=== PATIENT | male | born 1970 | race Caucasian/White ===

== ENCOUNTER → 2021-10-15 09:20 | Outpatient (CLI) | payer OTHER, SELFPAY ==
--- NOTE | ~2021-10-15 | XR_ITS ---
XR hip BI 2V w AP pelvis DATE: 10/15/2021 11:02 INDICATION: Right hip pain TECHNIQUE: AP pelvis. AP and lateral views of each hip COMPARISON: None FINDINGS: The pubic symphysis and sacroiliac joints are intact. Hip joint spaces are symmetric and re latively preserved. No pelvic fracture or bone destruction. No fracture, dislocation, avascular necrosis or bone destruct ion of either hip is detected. IMPRESSION: Negative Reviewed, dictated and finalized at location A. IMPRESSION: Negative
--- NOTE | ~2021-10-15 | XR_ITS ---
XR lumbar spine 2-3V DATE: 10/15/2021 11:01 INDICATION: Right hip pain TECHNIQUE: AP, lateral, coned lateral lumbosacral views COMPARISON: None FINDINGS: There is minimal levoscoliosis of the lumbar spine. No fracture or bone destruction. The lumbar pedicles are intact. There is degenerative changes apophyseal joints at L4-5 and L5-S1 in particular, with minimal grade 1 anterolisthesis at L4-5. There is prominent bridging osteophytes at L1-2 and L2-3 with moderate loss of interspace height at t hese levels, consistent with degenerative disc disease. Mild degenerative disc disease at L3-4 and L4-5. L5-S1 interspace is well preserved. Included portions of the sacroiliac joints are unremarkable. Evidence of bilateral prominent nephrolithiasis. IMPRESSION: Multilevel degenerative disease, most pronounced at L1-2 and L2-3 Degenerative changes apophyseal joints with minimal grade 1 anterolisthesis at L4-5 Bilateral prominent nephrolithiasis Reviewed, dictated and finalized at location A.
--- NOTE | ~2021-10-15 | MMUS_ITS ---
EXAMINATION: MM diagnostic mammo unilat LT, US breast LT limited HISTORY: Palpable left breast lump TECHNIQUE: Additional 3-D tomosynthesis images of left were performed and synthetic 2-D images were g enerated. CAD analysis was submitted and interpreted. High resolution Limited left breast ultrasound was performed. COMPARISON: None BREAST PARENCHYMAL COMPOSITION: Breast composed of scattered areas of fibroglandular density FINDINGS: MAMMOGRAPHIC FINDINGS: There are no suspicious masses, calcifications or architectural distortion in the left breast. There is a lymph node in the left axilla corresponding to the area of palpable concern. There is bilateral gynecomastia. ULTRASOUND: Limited left breast ultrasound: In the area of palpable concern there is an enlarged 2.7 x 1.3 x 1.7 cm lymph node with normal fatty hilum. IMPRESSION: 1. Enlarged left axillary lymph node corresponding to the area of palpable concern, likely benign and reactive. Recommend follow-up ultrasound as clinically warranted. BI-RADS Category 2: Benign finding(s). Reviewed, dictated and finalized at location A. IMPRESSION: 1. Enlarged left axillary lymph node corresponding to the area of palpable conc jose, likely benign and reactive. Recommend follow-up ultrasound as clinically w arranted. BI-RADS Category 2: Benign finding(s).
== END ==
PROVIDERS: PCP Physician Assistant; Visit Provider Physician Assistant
DX: M25.551 Pain in right hip (principal); N63.20 Unspecified lump in the left breast, unspecified quadrant; M51.36 Other intervertebral disc degeneration, lumbar region; N20.0 Calculus of kidney; R92.8 Other abnormal and inconclusive findings on diagnostic imaging of breast
CPT/HCPCS: 72100; 73521; 76642; 77065